=== PATIENT | male | born 1995 | race Two or more races ===

== ENCOUNTER 2021-11-19 04:59 | Emergency (ER) | payer MEDICAID, OTHER ==
[~2021-11-19] VITALS: Ht 172.7 cm; Wt 95.3 kg
[2021-11-19] MEDS ORDERED: VANCOMYCIN 1GM/250ML 250 ML IV ONE (05:15)
[2021-11-19] MEDS ORDERED: CEPH-509 PO (07:11)
[2021-11-19] MEDS ORDERED: CLIN300C8 PO (07:11)
[2021-11-19 07:32] LABS: Basophils # (auto) 0.1 10 ^3/uL (0-0.2); Basophils % (auto) 0.7 % (0.0-2.0); Eosinophils # (auto) 0.1 10 ^3/uL (0-0.8); Eosinophils % (auto) 0.8 % (0.0-7.0); Hemoglobin 13.4 g/dL (13.5-17.5); Lymphocytes # (auto) 1.6 10 ^3/uL (0.4-5.4); Lymphocytes % (auto) 18.1 % (10.0-50.0); Mean Corpuscular Hgb Conc. 34.4 g/dL (32.0-36.0); Mean Corpuscular Volume 84.2 fL (80.0-100.0); Monocytes # (auto) 0.5 10 ^3/uL (0-1.3); Monocytes % (auto) 5.3 % (0.0-12.0); Neutrophils # (auto) 6.5 10 ^3/uL (1.6-8.6); Neutrophils % (auto) 75.1 % (37.0-80.0); Red Blood Cells 4.62 10^6/uL (4.5-5.90); Red Cell Distribution Width 14.7 % (11.8-14.3); White Blood Cell 8.7 10^3/uL (4.4-10.8)
[2021-11-19 07:45] LABS: Potassium 3.8 mmol/L (3.5-5.1)
[2021-11-19 07:50] LABS: Albumin 3.6 g/dL (3.4-5.0); BUN/Creatinine Ratio 13.3; Calcium 8.7 mg/dL (8.5-10.1)
[2021-11-19 07:53] LABS: Bilirubin, Total 0.3 mg/dL (0.2-1.0); Total Protein 7.2 g/dL (6.4-8.2)
[2021-11-19 08:30] VITALS: BP 116/67
== END 2021-11-19 13:12 | disposition home or self-care (01) ==
LOC: ER 04:59
DX: L03.116 Cellulitis of left lower limb (principal); F17.210 Nicotine dependence, cigarettes, uncomplicated; Z88.0 Allergy status to penicillin; Z88.1 Allergy status to other antibiotic agents
CPT/HCPCS: 36415; 80053; 83605; 85025; 87040; 93971; 96365; 96366; 99284; J3370

== ENCOUNTER 2022-02-12 10:48 | Emergency (ER) | payer OTHER ==
[~2022-02-12] VITALS: Ht 188 cm; Wt 113.4 kg
[~2022-02-12 10:48] MED LIST: CEPH-509 PO; CLIN300C8 PO
[2022-02-12 10:54] VITALS: BP 125/58
[2022-02-12] MEDS ORDERED: SODIUM BICARBONATE 8.4 % INJ 50ML VIAL IV ONE (10:59)
== END 2022-02-12 12:17 ==
LOC: EDBD 10:48 → EDUNIT# 10:48 → ER 10:48
DX: I46.9 Cardiac arrest, cause unspecified (principal); R41.82 Altered mental status, unspecified
CPT/HCPCS: 31500; 92950